=== PATIENT | female | born 1955 | race Caucasian/White ===

== ENCOUNTER → 2021-01-31 | Day surgery (SDC) | payer MEDICARE, OTHER ==
[~2021-01-31] MED LIST: ENOXAPARIN80 MG/0.8 SQ; FERROUS GLUCON324 M1 PO
== END | disposition home or self-care (01) ==
LOC: OR 06:17
DX: C18.9 Malignant neoplasm of colon, unspecified (principal); Z79.01 Long term (current) use of anticoagulants; Z88.1 Allergy status to other antibiotic agents; Z20.822 Contact with and (suspected) exposure to COVID-19
CPT/HCPCS: 77001; C1769; C1788; J0690; J1100; J1642; J2001; J2250; J2405; J2704; J3010; J7040; J7120

== ENCOUNTER → 2021-04-29 | Outpatient (CLI) | payer MEDICARE, OTHER | LOC: CT 04-19 13:00 | DX: D37.6 Neoplasm of uncertain behavior of liver, gallbladder and bile ducts (principal); D50.9 Iron deficiency anemia, unspecified; C18.2 Malignant neoplasm of ascending colon; C78.7 Secondary malignant neoplasm of liver and intrahepatic bile duct | CPT/HCPCS: 36415; 71260; 82565; Q9967 ==

== ENCOUNTER → 2021-08-22 | Outpatient (CLI) | payer MEDICARE, OTHER | LOC: CT 08-09 10:30 | DX: C18.2 Malignant neoplasm of ascending colon (principal); C78.7 Secondary malignant neoplasm of liver and intrahepatic bile duct; D50.9 Iron deficiency anemia, unspecified; R91.1 Solitary pulmonary nodule | CPT/HCPCS: 71260; Q9967 ==

== ENCOUNTER → 2021-10-21 | Outpatient (CLI) | payer MEDICARE, OTHER | LOC: CT 09:10 | DX: C78.7 Secondary malignant neoplasm of liver and intrahepatic bile duct (principal); D37.6 Neoplasm of uncertain behavior of liver, gallbladder and bile ducts; D50.9 Iron deficiency anemia, unspecified; R93.3 Abnormal findings on diagnostic imaging of other parts of digestive tract; M79.9 Soft tissue disorder, unspecified; K55.059 Acute (reversible) ischemia of intestine, part and extent unspecified; R18.8 Other ascites; R91.8 Other nonspecific abnormal finding of lung field | CPT/HCPCS: 71260; Q9967 ==

== ENCOUNTER → 2021-12-17 | Outpatient (CLI) | payer MEDICARE, OTHER | LOC: CT 09:18 | DX: D37.6 Neoplasm of uncertain behavior of liver, gallbladder and bile ducts (principal); D50.9 Iron deficiency anemia, unspecified; C18.2 Malignant neoplasm of ascending colon; C78.7 Secondary malignant neoplasm of liver and intrahepatic bile duct; R91.8 Other nonspecific abnormal finding of lung field | CPT/HCPCS: 71260; Q9967 ==

== ENCOUNTER → 2022-03-18 | Outpatient (CLI) | payer MEDICARE, OTHER | LOC: CT 10:15 | DX: C18.2 Malignant neoplasm of ascending colon (principal); C78.7 Secondary malignant neoplasm of liver and intrahepatic bile duct; D50.9 Iron deficiency anemia, unspecified | CPT/HCPCS: 71260; Q9967 ==